=== PATIENT | male | born 1980 | race African-American/Black ===

== ENCOUNTER 2018-03-31 14:23 | Emergency (ER) | payer BC, OTHER ==
[~2018-03-31] VITALS: Ht 180.3 cm; Wt 95.3 kg
[2018-03-31] MEDS ORDERED: MOBIC15 MG PO (15:55)
[2018-03-31 16:12] VITALS: BP 104/74
== END 2018-03-31 16:12 | disposition home or self-care (01) ==
LOC: ER 14:23
DX: S39.012A Strain of muscle, fascia and tendon of lower back, initial encounter (principal); V43.02XA Car driver injured in collision with other type car in nontraffic accident, initial encounter; Y93.89 Activity, other specified; Y92.89 Other specified places as the place of occurrence of the external cause; Y99.8 Other external cause status